=== PATIENT | female | born 1960 | race Caucasian/White ===

== ENCOUNTER 2018-04-14 17:15 | Observation (INO) | payer BC ==
[2018-04-14 17:25] VITALS: BMI 22.9
[2018-04-14] MEDS ORDERED: ASPIRIN 81 MG CHEWABLE TABLETS PO ONE (17:26)
--- NOTE | 2018-04-14 17:26 | PDOC ---
Rapid Medical Evaluation Time Seen by Provider: 04/14/18 17:22 Medical Evaluation: Allergies Allergy/AdvReac Type Severity Reaction Status Date / Time ciprofloxacin [From Cipro] Allergy Severe Vomiting Verified 04/14/18 17:22 04/14/18 17:22 The patient complaints of: midsternal tightness with burning intermittently since 3 am , SOB since 8 am, no travel, no sx, Took pepcid ac with no relief, father mi at 42, seen by principal software engineer years ago, hx uterine ca On brief exam: vss, robert, lcta The patient was ordered for: cardiac w/u, pe w/u The patient will proceed to the ED Discharge Disposition - Diagnosis Chest tightness - Discharge Dispostion Condition at time of disposition: Guarded - Referrals - Patient Instructions - Post Discharge Activity
--- NOTE | 2018-04-14 17:55 | PDOC ---
History of Present Illness - General Chief Complaint: Chest Pain Stated Complaint: CHEST PAIN Time Seen by Provider: 04/14/18 17:22 History Source: Patient Exam Limitations: No Limitations - History of Present Illness Initial Comments: 04/14/18 18:04 58 year old female with PMH uterine CA (5 years ago, in remission, total hysterectomy with oophorectomy) presents to ED for chest pain since 0200 today. She locates her pain substernally, described as pressure, constant, waxing and waning, currently 5/10, no radiation, no alleviating or aggravating factors. She states she took pepcid for it without relief of her symptoms. She admits to shortness of breath today since 0800. She admits to bilateral calf cramping off and on over the last few days. She denies fever, chills, nausea, vomiting, diarrhea, abdominal pain, palpitations, cough, hemoptysis. She denies traveling >5 hours, hormone use, surgery <4 weeks, active cancer <6 months, hx DVT/PE, calf swelling, casting of extremities, bed rest >3 days. She states her father of an SC at 42 years old, her paternal uncle had an SC at 43. Allergies - Ciprofloxacin PCP - Federica Groves Weeder Thinner - Daquan Ruiz Past History - Past Medical History Allergies/Adverse Reactions: Allergies Allergy/AdvReac Type Severity Reaction Status Date / Time ciprofloxacin [From Cipro] Allergy Severe Vomiting Verified 04/14/18 17:22 Home Medications: Ambulatory Orders NK [No Known Home Medication] 04/14/18 Cancer: Yes (uterine) COPD: No - Immunization History Immunization Up to Date: Yes - Suicide/Smoking/Psychosocial Hx Smoking History: Never smoked Review of Systems - Review of Systems Able to Perform ROS?: Yes Comments:: 04/14/18 18:08 General: denies fever, chills, night sweats, generalized weakness. HEENT: denies sore throat, rhinorrhea, ear pain. Heart: admits to chest pain. denies palpitations, syncope, lower extremity swelling, diaphoresis. Respiratory: admits to shortness of breath. denies cough, sputum production, hemoptysis. Abdomen: denies abdominal pain, nausea, vomiting, diarrhea, constipation, blood in stool. : denies dysuria, increased urinary frequency, hematuria, urinary incontinence , flank pain. Back: denies back pain. Musculoskeletal: admits to bilateral calf cramping. denies joint pain, joint swelling. Neurological: denies headache, dizziness, numbness, tingling, weakness. Skin: denies rash, laceration, abrasion. *Physical Exam - Vital Signs Last Vital Signs Temp Pulse Resp BP Pulse Ox 97.8 F 50 L 20 152/74 100 04/14/18 17:22 04/14/18 17:22 04/14/18 17:22 04/14/18 17:22 04/14/18 17:22 - Physical Exam Comments: 04/14/18 18:09 Constitutional: Well-nourished, Well-developed, appearing stated age. HEENT: head is normocephalic, atraumatic. EOMI. PERRLA. Neck: supple. Full ROM. Heart: regular rhythm. no murmurs, rubs or gallops. Lungs: clear to auscultation bilaterally. no crackles, rhonchi or wheezing. no stridor. Abdomen: soft, nontender. normal bowel sounds. no rebound, guarding, masses. Extremities: Peripheral pulses intact and equal. No lower extremity edema. no tenderness to palpation of calf bilaterally. Neurological: CN 2-12 grossly intact. Moves all four extremities. Psych: awake, alert, oriented x3. Follows commands. Answers questions appropriately. ED Treatment Course - LABORATORY CBC & Chemistry Diagram: 04/14/18 18:11 04/14/18 18:11 Medical Decision Making - Medical Decision Making 04/14/18 18:09 58 year old female c/o chest pain since 0200 today. Family history positive for father of SC at 42. Denies HTN, DM, HLD, nicotine use. Initial Vital Signs Temp Pulse Resp BP Pulse Ox 97.8 F 50 L 20 152/74 100 04/14/18 17:22 04/14/18 17:22 04/14/18 17:22 04/14/18 17:22 04/14/18 17:22 Afebrile. Bradycardic. No tachypnea. Hypertensive. No hypoxia on room air. Concern for ACS/arrythmia - c/o chest pain, positive family history - Pending EKG, cardiac enzymes, CMP Concern for symptomatic bradycardia, hx running, no prior vitals to compare - Pacing pads applied - Will reassess Low concern for PE - no lower extremity swelling, b/l calf cramping, no tachycardia, SOB but no hypoxia on room air. - Cannot PERC out due to age - WELLs = 0 - Pending D-dimer, CTA, B/L dopper US of LE Low concern for CHF/Pneumonia - Pending CXR, BNP, CBC EKG performed at 1714 - rate 47, regular rhythm, normal axis, normal intervals, CA = 186, QTc = 387, no acute ST changes. Morphine ordered for pain. Nitro ordered for pain. Pepcid ordered for possible GERD. ASA ordered for possible ACS. 04/14/18 19:20 D-dimer normal. - CTA canceled - Pending LE Doppler US Pt complains of nausea. - Zofran ordered 04/14/18 19:39 CMP Sodium 140 mmol/L (136-145) 04/14/18 18:11 Potassium 3.8 mmol/L (3.5-5.1) 04/14/18 18:11 Chloride 107 mmol/L (98-107) 04/14/18 18:11 Carbon Dioxide 23 mmol/L (21-32) 04/14/18 18:11 Anion Gap 11 MMOL/L (8-16) 04/14/18 18:11 BUN 10 mg/dL (7-18) 04/14/18 18:11 Creatinine 0.7 mg/dL (0.55-1.3) 04/14/18 18:11 Creat Clearance w eGFR > 60 (>60) 04/14/18 18:11 Random Glucose 78 mg/dL (74-106) 04/14/18 18:11 Calcium 10.1 mg/dL (8.5-10.1) 04/14/18 18:11 Magnesium 2.3 mg/dL (1.8-2.4) 04/14/18 18:11 Total Bilirubin 0.7 mg/dL (0.2-1) 04/14/18 18:11 AST 16 U/L (15-37) 04/14/18 18:11 ALT 21 U/L (13-61) 04/14/18 18:11 Alkaline Phosphatase 82 U/L (45-117) 04/14/18 18:11 Creatine Kinase 162 IU/L (26-192) 04/14/18 18: Troponin I < 0.02 ng/ml (0.00-0.05) 04/14/18 18: B-Natriuretic Peptide 64.3 pg/ml (5-125) 04/14/18 18: Total Protein 8.0 g/dl (6.4-8.2) 04/14/18 18: Albumin 4.2 g/dl (3.4-5.0) 04/14/18 18: TSH 3.29 uIU/ml (0.358-3.74) 04/14/18 18: No electrolyte abnormalities. No acute kidney injury. No hyperglycemia. Normal initial troponin. Will repeat. - HEART score = 1 (positive family history) Normal BNP. Normal TSH. Normal phosphorous, 2.3. Urine Test Results Urine Color Straw 04/14/18 18: Urine Appearance Clear 04/14/18 18: Urine pH 8.0 (5.0-8.0) 04/14/18 18: Ur Specific [place] 1.003 (1.010-1.035) L 04/14/18 18: Urine Protein Negative (NEGATIVE) 04/14/18 18: Urine Glucose (UA) Negative (NEGATIVE) 04/14/18 18: Urine Ketones Negative (NEGATIVE) 04/14/18 18: Urine Blood Negative (NEGATIVE) 04/14/18 18: Urine Nitrite Negative (NEGATIVE) 04/14/18 18: Urine Bilirubin Negative (<2.0 mg/dL) 04/14/18 18: Ur Leukocyte Esterase 1+ (NEGATIVE) H 04/14/18 18: Ur Epithelial Cells Few /HPF (FEW) 04/14/18 18: Leukocyte esterase positive, but WBC <5, (+) presence of epithelial cells, asymptomatic. - UTI unlikely No protein in urine. INR, PTT INR 1.00 (0.83-1.09) 04/14/18 18: PT and PTT normal. No coagulopathy. 04/14/18 19:47 Cardiology, Dr. Kemp, paged. 04/14/18 19:[address] Kemp's office, Dr. Abdi is dimension warehouse supervisor. Dr. Abdi paged. 04/14/18 20:18 CXR - no infiltrate. no cardiomegaly. no pneumothorax. sharp costophrenic angles. 04/14/18 20:24 I discussed the case with Dr. Alejandre, resident dimension warehouse supervisor, who states the patient will be admitted to Dr. Brenner's service. - Pending admission 04/14/18 20:42 Dr. Zee spoke with Dr. Abdi about the case, he stated he accepted the consultation, he stated he will see the patient tomorrow. *DC/Admit/Observation/Transfer Diagnosis at time of Disposition: Chest tightness - Discharge Dispostion Condition at time of disposition: Guarded Decision to Admit order: Yes - Referrals - Patient Instructions - Post Discharge Activity
[2018-04-14] MEDS ORDERED: ASPIRIN 81 MG CHEWABLE TABLETS ONE (18:06)
[2018-04-14] MEDS ORDERED: SODIUM CHLORIDE 0.9% 1000 ML INFUS.BAG IV ONE (18:44)
[2018-04-14] MEDS ORDERED: NITROGLYCERIN SUBLINGUAL 1/150 0.4 MG TAB SL ONE (18:44)
[2018-04-14] MEDS ORDERED: FAMOTIDINE 20 MG/50 ML IVPB 20 MG/50 ML MG IVPB ONE ×2 (18:44→19:06)
[2018-04-14] MEDS ORDERED: morphine CARPU-JECT 2 MG/1 ML DISP.SYRIN IVPUSH ONE (18:44)
[2018-04-14] MEDS ORDERED: NITROGLYCERIN SUBLINGUAL 1/150 0.4 MG TAB ONE (18:52)
[2018-04-14] MEDS ORDERED: MORPHINE SULFATE 2 MG/ML VIAL ONE (18:52)
[2018-04-14 18:54] LABS: BASO % 0.6 % (0-2.0); EOS % 1.4 % (0-4.5); HEMATOCRIT 41.3 % (32.4-45.2); HEMOGLOBIN 13.6 GM/dL (10.7-15.3); MCH 29.5 pg (25.7-33.7); MCHC 32.8 g/dl (32.0-36.0); MEAN PLT VOLUME 8.6 fl (7.5-11.1); MONO % 9.6 % (3.8-10.2); NEUT % 48.4 % (42.8-82.8); PLATELET COUNT 263 K/MM3 (134-434); RDW 13.1 % (11.6-15.6); URINE APPEARANCE CLEAR; URINE BILIRUBIN NEGATIVE (<2.0 mg/dL); URINE COLOR STRAW; URINE GLUCOSE (UA) NEGATIVE (NEGATIVE); URINE KETONE NEGATIVE (NEGATIVE); URINE LEUK ESTERASE 1+ (NEGATIVE); URINE NITRITE NEGATIVE (NEGATIVE); URINE PROTEIN NEGATIVE (NEGATIVE); URINE UROBILINOGEN NEGATIVE mg/dL (0.2-1.0); WHITE BLOOD COUNT 6.4 K/mm3 (4.0-10.0)
[2018-04-14] MEDS ORDERED: ONDANSETRON 4 MG/2 ML VIAL ONE (19:02)
[2018-04-14] MEDS ORDERED: ONDANSETRON 4 MG/2 ML VIAL IVPUSH ONE (19:02)
[2018-04-14 19:03] LABS: EPI CELLS FEW /HPF (FEW); PROTHROMBIN TIME (PATIENT) 11.8 SEC (9.7-13.0)
--- NOTE | 2018-04-14 19:14 | PDOC ---
Attending Attestation - HPI HPI: 04/14/18 19:15 The patient is a 58 year old female with a significant past medical history of uterine CA (5 years ago, in remission, s/p total hysterectomy with oophorectomy ) who presents to the ED with complaints of chest pain since earlier today. Patient reports an onset of waxing and waning midsternal chest pain described as a pressure like sensation around 4am this morning. She also reports slight shortness of breath associated with present symptoms. Denies fever or chills. Denies nausea, vomiting, or diarrhea. Denies any others symptoms. Documentation prepared by Sagar Adam, acting as medical technologist prn for Phylicia Zee DO - Physicial Exam PE: 04/14/18 19:16 Constitutional: Awake, alert, oriented. No acute distress. Head: Normocephalic. Atraumatic Eyes: PERRL. EOMI. Conjunctivae are not pale. ENT: Mucous membranes are moist and intact. Posterior pharynx without exudates or erythema. Uvula midline. Neck: Supple. Full ROM. No lymphadenopathy. Cardiovascular: + Bradycardic. Regular rhythm. S1, S2 regular. Distal pulses are 2+ and symmetric. Pulmonary/Chest: No evidence of respiratory distress. Clear to auscultation bilaterally No wheezing, rales or rhonchi. Abdominal: Soft and non-distended. There is no tenderness. No rebound, guarding or rigidity. No organomegaly. No palpable masses. Good bowel sounds. Back: No CVA tenderness. Musculoskeletal: No edema. No cyanosis. No clubbing. Full range of motion in all extremities. Nocalf tenderness. Radial/pedal pulses are intact and 2+ bilaterally Skin: Skin is warm and dry. No petechiae. No purpura. Neurological: Alert and oriented to person, place, and time. Cranial nerves II -XII are grossly intact. Normal speech. Strength is grossly symmetric. No sensory deficits. Psychiatric: Good eye contact. Normal interaction, affect and behavior. <Sagar Adam - Last Filed: 04/14/18 19:15> - Resident Resident Name: Mady Cerda - ED Attending Attestation I have performed the following: I have examined & evaluated the patient, The case was reviewed & discussed with the resident, I agree w/resident's findings & plan, Exceptions are as noted - Medical Decision Making 04/14/18 19:14 I, Dr. Phylicia Zee, DO, attest that this document has been prepared under my direction and personally reviewed by me in its entirety. I further attest, that it accurately reflects all work, treatment, procedures and medical decision -making performed by me. 04/14/18 19:25 a/p: 58yo female with chest pain since 4am -midsternal cp, assoc sob -has had calf cramping and has had sob today -hx of cancer in the past -no pleuritic component to the pain -no radiation of the pain, no rashes, no anterior chest wall ttp -pt is active at baseline, pt is robert on her EKG -will send labs, trop, ekg, cxr, duplex u/s LE, dimer -will monitor on tele -will place zol pads to the chest -will place in obs pending labs, will need cardiac eval 04/14/18 19:44 trop negative dimer negative pt to ultrasound at this time updated on lab results 04/14/18 20:[address] Abdi who will see the patient in consult 04/14/18 20:35 resident discussed the case with [facility] who accepts the patient to service <Phylicia Zee - Last Filed: 04/14/18 20:35> Heart Score/ECG Review - ECG Intrepretation Comment:: 04/14/18 19:28 sinus robert at 47, nl axis, nl interval, no acute st/t wave findings <Phylicia Zee - Last Filed: 04/14/18 20:35>
[2018-04-14 19:25] LABS: ALBUMIN 4.2 g/dl (3.4-5.0); ALK PHOS 82 U/L (45-117); ANION GAP 11 MMOL/L (8-16); BILIRUBIN,TOTAL 0.7 mg/dL (0.2-1); BLOOD UREA NITROGEN 10 mg/dL (7-18); CALCIUM 10.1 mg/dL (8.5-10.1); CHLORIDE 107 mmol/L (98-107); CO2 23 mmol/L (21-32); CREATININE 0.7 mg/dL (0.55-1.3); GLUCOSE,RANDOM 78 mg/dL (74-106); MAGNESIUM 2.3 mg/dL (1.8-2.4); N-TERMINAL BNP 64.3 pg/ml (5-125); POTASSIUM 3.8 mmol/L (3.5-5.1); SGOT/AST 16 U/L (15-37); SGPT/ALT 21 U/L (13-61); SODIUM 140 mmol/L (136-145)
[2018-04-14] MEDS ORDERED: MAG HYDROX/AL HYDROX/SIMETH 30 ML UNIT-DOSE CUP PO ONE (19:42)
[2018-04-14] MEDS ORDERED: MAG HYDROX/AL HYDROX/SIMETH 30 ML UNIT-DOSE CUP ONE (19:46)
--- NOTE | 2018-04-14 20:35 | PN ---
Teaching Attending Note Name of Resident: Brenda Swan ATTENDING PHYSICIAN STATEMENT I saw and evaluated the patient. I reviewed the resident's note and discussed the case with the resident. I agree with the resident's findings and plan as documented. SUBJECTIVE: Patient is a 58 year old woman with PMH of uterine CA (5 years ago, in remission , total hysterectomy with oophorectomy) who presents to ER for chest pain since 0200 today. She locates her pain substernally, described as pressure, constant, waxing and waning, currently 5/10, no radiation, no alleviating or aggravating factors. She states she took pepcid for it without relief of her symptoms. She admits to shortness of breath today since 0800. She admits to calf cramping off and on over the last few days. She denies fever, chills, nausea, vomiting, diarrhea, abdominal pain, palpitations, cough, hemoptysis. She denies traveling >5 hours, hormone use, surgery <4 weeks, active cancer <6 months, hx DVT/PE, calf swelling/pain, casting of extremities, bed rest >3 days. She states her father of an [place] at 42 years old, her paternal uncle had an [place] at 43. OBJECTIVE: Alert Vital Signs Period Temp Pulse Resp BP Sys/De Jesus Pulse Ox Last 24 Hr 97.8 F 48-52 17-20 139-152/61-74 100-100 HEENT: No Jaundice, eye redness or discharge, PERRLA, EOMI. Normocephalic, atraumatic. External ears are normal and hearing is grossly intact. No nasal discharge. Neck: Supple, nontender. No palpable adenopathy or thyromegaly. No JVD Chest: Good effort. Clear to auscultation and percussion. Heart: Bradycardia. No S3, rub or murmur Abdomen: Not distended, soft, nontender and no HSM. No rebound or guarding. Normoactive bowel sounds. Ext: Peripheral pulses intact. No leg edema. Skin: Warm and dry. No petechiae, rash or ecchymosis. Neuro: Alert. Oriented x3. CN 2-12 grossly intact. Sensation grossly intact in all four extremities and DTR are symmetric. Home Medications Medication Instructions Recorded NK [No Known Home Medication] 10/11/18 Abnormal Lab Results 04/14/18 18:11 Ur Specific [place] 1.003 L Ur Leukocyte Esterase 1+ H ASSESSMENT AND PLAN: 1. Chest pain and Bradycardia - Has significant family history of premature CAD. No ST-T wave changes on EKG and troponin is negative. Will admit to telemetry to rule out ACS. Get ECHO, fasting lipids and consult cardiology. Bradycardia may be related to the fact that she is an avid runner. 2. DVT prophylaxis - Lovenox 40 mg SQ q 24 hours. 3. Advance directives - Full code
--- NOTE | 2018-04-14 22:15 | HP ---
CHIEF COMPLAINT: chest pain and sob PCP: HISTORY OF PRESENT ILLNESS: 58F w/ pmhx of uterine cx s/p HATTIE who presents with chest pain and sob since this AM. Pt states that she started having non-radiating mid-sternal chest pain that she rated 6/10 at the time. She also admits to associated sob during this episode. Pt reports that she has had a chest pain in the past where she had taken Pepcid with complete resolution of the pain. During this episode however, she did take a Pepcid with no relief. She also states that the chest pain today was much different than the prior episode. Upon presenting to the hospital, after she was given nitro, she reported complete relief of the pain after a few min, but with return on a pain scale of 4/10. ER course was notable for: (1) EKG showed sinus bradycardia, trops neg, d-dimer neg, CXR neg, BNP nl (2) Morphine 2mg, Aspirin 162, Nitro, Zofran, Pepcid given (3) Recent Travel: Denies PAST MEDICAL HISTORY: Uterine cx s/p HATTIE w/ b/l salpingo-oophorectomy, in complete remission PAST SURGICAL HISTORY: HATTIE w/ b/l salpingo-oophorectomy Social History: Smoking: Never Alcohol: socially, wine Drugs: Never Family History: Father, [place], at 45 Uncle, [place], at 42 Mother, [place], at 88 Allergies ciprofloxacin [From Cipro] Allergy (Severe, Verified 04/14/18 17:22) Vomiting HOME MEDICATIONS: Home Medications Medication Instructions Recorded NK [No Known Home Medication] 04/14/18 REVIEW OF SYSTEMS CONSTITUTIONAL: Absent: fever, chills, diaphoresis, generalized weakness, malaise,weight change HEENT: Absent: rhinorrhea, nasal congestion, visual changes CARDIOVASCULAR: +chest pressure Absent: chest pain, syncope, palpitations, irregular heart rate, lightheadedness , peripheral edema RESPIRATORY: +shortness of breath Absent: cough, dyspnea with exertion, orthopnea, wheezing GASTROINTESTINAL: Absent: abdominal pain, abdominal distension, nausea, vomiting, diarrhea, constipation GENITOURINARY: Absent: dysuria, frequency, urgency, hesitancy, hematuria MUSCULOSKELETAL: Absent: myalgia, arthralgia, joint swelling, back pain, neck pain ENDOCRINE: Absent: unexplained weight gain, unexplained weight loss, heat intolerance, cold intolerance NEUROLOGIC: Absent: headache, dizziness, unsteady gait, bladder or bowel incontinence PHYSICAL EXAMINATION Vital Signs - 24 hr 04/14/18 04/14/18 04/14/18 17:22 19:10 19:20 Temperature 97.8 F Pulse Rate 50 L 48 L Pulse Rate [ 52 L 48 L Right] Respiratory 20 17 18 Rate Blood Pressure 152/74 Blood Pressure 146/74 139/61 [Right Arm] O2 Sat by Pulse 100 100 100 Oximetry (%) 04/14/18 21:06 Temperature 97.4 F L Pulse Rate Pulse Rate [ 48 L Right] Respiratory 18 Rate Blood Pressure Blood Pressure 130/41 L [Right Arm] O2 Sat by Pulse 100 Oximetry (%) GENERAL: AAOx3. NAD. Resting comfortably. HEENT: AT/NC. EOMI. VIBHA. Moist mucus membranes. NECK: Supple, no LAD/JVD. LUNGS: CTA B/L. No w/r/r noted. Symmetric chest rise. No accessory muscle use. HEART: Bradycardic. Normal S1, S2. No murmurs noted. Chest pain non-reproducible ABDOMEN: Soft, ND/NT +BS in all 4 Q's. No masses or bruits noted. MUSCULOSKELETAL: No pedal edema. 5/5 muscle strength in b/l u/l extremities. NEUROLOGICAL: Normal speech. CN II-XII intact. PSYCHIATRIC: Cooperative. Good eye contact. Appropriate mood and affect. SKIN: Warm, dry, normal turgor, normal capillary refill. Laboratory Results - last 24 hr CBC, BMP 04/14/18 18:11 04/14/18 18:11 Abnormal Lab Results 04/14/18 18:11 Ur Specific [place] 1.003 L Ur Leukocyte Esterase 1+ H ASSESSMENT/PLAN: 58F w/ pmhx of uterine cx s/p HATTIE currently in complete remission admitted for acute onset chest pain and shortness of breath. #chest pain r/o ACS; Unlikely ACS as trops neg, EKG sinus robert with no STT depression/elevations, or T wave changes. Pt states she was an active runner, and now does spin class 4 days a week. Bradycardia likely due to athletic conditioning. -repeat trops neg, f/u EKG -Echo in AM -Cardio consult ordered -Fasting lipid profile ordered #DVT Ppx -early ambulation -Lovenox 40 mg SQ QD #FEN -no IVf needed -recheck lytes in AM -Regular diet dispo -admit to tele obs Visit type - Emergency Visit Emergency Visit: Yes ED Registration Date: 04/14/18 Care time: The patient presented to the Emergency Department on the above date and was hospitalized for further evaluation of their emergent condition. - New Patient This patient is new to me today: Yes Date on this admission: 04/15/18 - Critical Care Critical Care patient: No
[2018-04-15 06:50] LABS: HEMATOCRIT 33.7 % (32.4-45.2); HEMOGLOBIN 11.3 GM/dL (10.7-15.3); MCHC 33.7 g/dl (32.0-36.0); MEAN CELL VOLUME 89.1 fl (80-96); MEAN PLT VOLUME 8.6 fl (7.5-11.1); PLATELET COUNT 217 K/MM3 (134-434); RBC 3.78 M/mm3 (3.60-5.2); WHITE BLOOD COUNT 5.4 K/mm3 (4.0-10.0)
[2018-04-15 07:09] LABS: ANION GAP 9 MMOL/L (8-16); BLOOD UREA NITROGEN 11 mg/dL (7-18); CALCIUM 8.6 mg/dL (8.5-10.1); CHLORIDE 114 mmol/L (98-107); CHOLESTEROL 158 mg/dL (50-200); CO2 22 mmol/L (21-32); CREATININE 0.7 mg/dL (0.55-1.3); GLUCOSE,RANDOM 80 mg/dL (74-106); HDL CHOLESTEROL 59 mg/dL (40-60); SODIUM 145 mmol/L (136-145); TRIGLYCERIDES 61 mg/dL (0-150)
--- NOTE | 2018-04-15 09:24 | PN ---
Progress Note, Physician Chief Complaint: No c/o chest pain or SOB, denies any Palpitation or Dizziness History of Present Illness: 58 yrs old F H/O Uterine cancer in remission s/p HATTIE with B/L Oophrectomy , excellent exercise tolerance FHO premature CAD preent with pressure like chest pain incedentally found to have sinus bradycardia that is persistent on Administrative Hearing Officer, all interval and morphology is normal, normal serial CE schedulefor CAd w/u. - Current Medication List Current Medications: Active Medications Enoxaparin Sodium (Lovenox -) 40 mg SQ DAILY [facility] Active Medications Generic Name Dose Route Start Last Admin Trade Name Freq PRN Reason Stop Dose Admin Al Hydroxide/Mg Hydroxide 30 ml 04/15/18 09:42 Mylanta Oral Suspension - PO Q6H PRN DYSPEPSIA Enoxaparin Sodium 40 mg 04/15/18 10:00 Lovenox - SQ DAILY NELLA Pantoprazole Sodium 40 mg 04/15/18 10:00 Protonix - PO DAILY NELLA - Objective Vital Signs: Vital Signs Temperature 98 F 04/15/18 06:00 Pulse Rate 56 L 04/15/18 06:00 Respiratory Rate 18 04/15/18 06:00 Blood Pressure 102/67 04/15/18 06:00 O2 Sat by Pulse Oximetry (%) 99 04/15/18 06:05 Middle aged F comfortable not in distress HEENT: Mm moist, no anemia NECK: No JVD No Bruit CHEST: CTA B/L no m/g/r ABD: No distention, non tender Bs + EXT: No Edema feet, no calf pain Pulses + FANCY PACKER: AOX3 non focal Labs: CBCD WBC 5.4 K/mm3 (4.0-10.0) 04/15/18 05:30 RBC 3.78 M/mm3 (3.60-5.2) 04/15/18 05:30 Hgb 11.3 GM/dL (10.7-15.3) 04/15/18 05:30 Hct 33.7 % (32.4-45.2) D 04/15/18 05:30 MCV 89.1 fl (80-96) 04/15/18 05:30 MCHC 33.7 g/dl (32.0-36.0) 04/15/18 05:30 RDW 13.0 % (11.6-15.6) 04/15/18 05:30 Plt Count 217 K/MM3 (134-434) 04/15/18 05:30 MPV 8.6 fl (7.5-11.1) 04/15/18 05:30 CMP Sodium 145 mmol/L (136-145) 04/15/18 05:30 Potassium 4.0 mmol/L (3.5-5.1) 04/15/18 05:30 Chloride 114 mmol/L (98-107) H 04/15/18 05:30 Carbon Dioxide 22 mmol/L (21-32) 04/15/18 05:30 Anion Gap 9 MMOL/L (8-16) 04/15/18 05:30 BUN 11 mg/dL (7-18) 04/15/18 05:30 Creatinine 0.7 mg/dL (0.55-1.3) 04/15/18 05:30 Creat Clearance w eGFR > 60 (>60) 04/15/18 05:30 Calcium 8.6 mg/dL (8.5-10.1) 04/15/18 05:30 Total Bilirubin 0.7 mg/dL (0.2-1) 04/14/18 18:11 AST 16 U/L (15-37) 04/14/18 18:11 ALT 21 U/L (13-61) 04/14/18 18:11 Alkaline Phosphatase 82 U/L (45-117) 04/14/18 18:11 Total Protein 8.0 g/dl (6.4-8.2) 04/14/18 18:11 Albumin 4.2 g/dl (3.4-5.0) 04/14/18 18:11 Trop I X2 are normal Lipid: LDL 95 TSH: Normal - ....Imaging Chest X-ray: Report Reviewed (Normal) Ultrasound: Report Reviewed (LE Doppler: -ve for DVT) Problem List - Problems (1) Chest tightness Assessment/Plan: Atypical presenattion only CAd risk is premature CAd multiple family members, non smoker, not on HRT, LDL at target excellent ET, F/U ECHO Cardiology input Cardiac CT angio/Stress test as per cardiology input fprrisk stratification, possibality of GERD /esophageal spasm but duration is prolonged. Code(s): R07.89 - OTHER CHEST PAIN (2) Bradycardia Assessment/Plan: persistent most likely due to cardoio Pulmonary condoition , patient was an avid runner in the past. Code(s): R00.1 - BRADYCARDIA, UNSPECIFIED
--- NOTE | 2018-04-15 09:28 | EKG ---
Test Reason : Blood Pressure : / mmHG Vent. Rate : 044 BPM Atrial Rate : 044 BPM P-R Int : 228 ms QRS Dur : 078 ms QT Int : 470 ms P-R-T Axes : 062 018 060 degrees QTc Int : 401 ms MARKED SINUS BRADYCARDIA WITH 1ST DEGREE A-V BLOCK CANNOT RULE OUT ANTERIOR INFARCT , AGE UNDETERMINED ABNORMAL ECG WHEN COMPARED WITH ECG OF 14-APR-2018 17:14, IN INTERVAL HAS INCREASED Confirmed by YASMIN MCLAIN MD ([id number]) on 04/15/2018 9:28:10 AM Referred By: TUAN LAN DRBAN[facility] Confirmed By:YASMIN MCLAIN MD
[2018-04-15] MEDS ORDERED: MAG HYDROX/AL HYDROX/SIMETH 30 ML UNIT-DOSE CUP PO PRN (09:42)
--- NOTE | 2018-04-15 09:58 | EKG ---
Test Reason : Blood Pressure : / mmHG Vent. Rate : 047 BPM Atrial Rate : 047 BPM P-R Int : 186 ms QRS Dur : 078 ms QT Int : 438 ms P-R-T Axes : 018 015 059 degrees QTc Int : 387 ms SINUS BRADYCARDIA NONSPECIFIC ST ABNORMALITY NO PREVIOUS ECGS AVAILABLE Confirmed by YASMIN MCLAIN MD ([id number]) on 04/15/2018 9:58:21 AM Referred By: Confirmed By:YASMIN MCLAIN MD
[2018-04-15] MEDS ORDERED: ENOXAPARIN NA (PORCINE) 40 MG/0.4 ML DISP.SYRIN SQ SCH (10:00)
[2018-04-15] MEDS ORDERED: PANTOPRAZOLE 40 MG TABLET (FP) PO SCH (10:00)
[2018-04-15 10:10] VITALS: BP 107/60; PULSE 44; TEMP 98.2
--- NOTE | 2018-04-15 11:28 | CON.CARD ---
Cardiology Consult (text) - Consultation Consultation Note: cc: cp hpi: 58 f hx gerd, uterine ca here with cp. Yesterday AM awoke with central chest tightness. She took pepcid and went to work. CP persisted so came to ER. Overnight cp resolved. Feeling well now. No cp now. Did not have sob palps dizzy loc pnd orhtopnea le edema. Very active with exercise and does spin class and running often, including earlier this week, never has anginal sxs. pmh: per hpi psh: HATTIE social: no tob fam: dad and uncle mi 40s ros: per hpi; no nvd fever cough reece vision changes gib hematuria dysuria meds: Home Medications Medication Instructions Recorded NK [No Known Home Medication] 04/14/18 pe: Vital Signs Period Temp Pulse Resp BP Sys/De Jesus Pulse Ox Last 24 Hr 97.4 F-98.2 F 44-59 17-20 94-152/41-74 98-100 nad no jvd rrr s1s2 no mrg cta bl nl eff aaox3 no le e/c/c abd nt nd pos bs no jaundice diaphoresis pos dp pt no carotid bruits Laboratory Last Values WBC 5.4 K/mm3 (4.0-10.0) 04/15/18 05:30 RBC 3.78 M/mm3 (3.60-5.2) 04/15/18 05:30 Hgb 11.3 GM/dL (10.7-15.3) 04/15/18 05:30 Hct 33.7 % (32.4-45.2) D 04/15/18 05:30 MCV 89.1 fl (80-96) 04/15/18 05:30 MCH 30.0 pg (25.7-33.7) 04/15/18 05:30 MCHC 33.7 g/dl (32.0-36.0) 04/15/18 05:30 RDW 13.0 % (11.6-15.6) 04/15/18 05:30 Plt Count 217 K/MM3 (134-434) 04/15/18 05:30 MPV 8.6 fl (7.5-11.1) 04/15/18 05:30 Absolute Neuts (auto) 3.1 K/mm3 (1.5-8.0) 04/14/18 18:11 Neutrophils % 48.4 % (42.8-82.8) 04/14/18 18:11 Lymphocytes % 40.0 % (8-40) 04/14/18 18:11 Monocytes % 9.6 % (3.8-10.2) 04/14/18 18:11 Eosinophils % 1.4 % (0-4.5) 04/14/18 18:11 Basophils % 0.6 % (0-2.0) 04/14/18 18:11 Nucleated RBC % 0 % (0-0) 04/14/18 18:11 PT with INR 11.80 SEC (9.7-13.0) 04/14/18 18:11 INR 1.00 (0.83-1.09) 04/14/18 18:11 D-Dimer 330 ng/ml (0-500) 04/14/18 18:11 Sodium 145 mmol/L (136-145) 04/15/18 05:30 Potassium 4.0 mmol/L (3.5-5.1) 04/15/18 05:30 Chloride 114 mmol/L (98-107) H 04/15/18 05:30 Carbon Dioxide 22 mmol/L (21-32) 04/15/18 05:30 Anion Gap 9 MMOL/L (8-16) 04/15/18 05:30 BUN 11 mg/dL (7-18) 04/15/18 05:30 Creatinine 0.7 mg/dL (0.55-1.3) 04/15/18 05:30 Creat Clearance w eGFR > 60 (>60) 04/15/18 05:30 Random Glucose 80 mg/dL (74-106) 04/15/18 05:30 Calcium 8.6 mg/dL (8.5-10.1) 04/15/18 05:30 Magnesium 2.3 mg/dL (1.8-2.4) 04/14/18 18:11 Total Bilirubin 0.7 mg/dL (0.2-1) 04/14/18 18:11 AST 16 U/L (15-37) 04/14/18 18:11 ALT 21 U/L (13-61) 04/14/18 18:11 Alkaline Phosphatase 82 U/L (45-117) 04/14/18 18:11 Creatine Kinase 162 IU/L (26-192) 04/14/18 18:11 Creatine Kinase Index 0.6 % (0.0-5.0) 04/14/18 18:11 CK-MB (CK-2) < 1.0 ng/mL (0.5-3.6) 04/14/18 18:11 Troponin I < 0.02 ng/ml (0.00-0.05) 04/15/18 01:30 B-Natriuretic Peptide 64.3 pg/ml (5-125) 04/14/18 18:11 Total Protein 8.0 g/dl (6.4-8.2) 04/14/18 18:11 Albumin 4.2 g/dl (3.4-5.0) 04/14/18 18:11 Triglycerides 61 mg/dL (0-150) 04/15/18 05:30 Cholesterol 158 mg/dL (50-200) 04/15/18 05:30 Total LDL Cholesterol 95 mg/dL (5-100) 04/15/18 05:30 HDL Cholesterol 59 mg/dL (40-60) 04/15/18 05:30 TSH 3.29 uIU/ml (0.358-3.74) 04/14/18 18:11 Urine Color Straw 04/14/18 18: Urine Appearance Clear 04/14/18 18: Urine pH 8.0 (5.0-8.0) 04/14/18 18:11 Ur Specific [place] 1.003 (1.010-1.035) L 04/14/18 18: Urine Protein Negative (NEGATIVE) 04/14/18 18: Urine Glucose (UA) Negative (NEGATIVE) 04/14/18 18: Urine Ketones Negative (NEGATIVE) 04/14/18 18: Urine Blood Negative (NEGATIVE) 04/14/18 18: Urine Nitrite Negative (NEGATIVE) 04/14/18 18: Urine Bilirubin Negative (<2.0 mg/dL) 04/14/18 18: Urine Urobilinogen Negative mg/dL (0.2-1.0) 04/14/18 18:11 Ur Leukocyte Esterase 1+ (NEGATIVE) H 04/14/18 18:11 Urine WBC (Auto) 2 /hpf (3-5) 10/11/18 18:11 Urine RBC (Auto) 1 /hpf (0-3) 04/14/18 18:11 Ur Epithelial Cells Few /HPF (FEW) 04/14/18 18:11 cxr: clear lungs ecgs 04/14, 04/15/18: sb 40s, nl intervals, no ischemic changes tele: sb 40s a/p: 58 f hx gerd, uterine ca here with cp. cp: -resolved now -ecg and ce's unremarkable, no signs acs - d-dimer nl -echo pending -Pt should have ETT for risk stratification. She has no cp now and would like to do this as outpt. -if echo benign ok for dc from cardiac pov sinus bradycardia: -no pathologic bradycardia on tele -tsh wnl -likely due to extensive cardio exercising she does gerd: -possible cause of her sxs, GI eval
[2018-04-15] MEDS ORDERED: ACETAMINOPHEN 325 MG TABLET (FP) PO PRN (11:50)
--- NOTE | 2018-04-15 12:18 | ECHO ---
Name: DOREEN COX Exam:Adult Echocardiogram Study Date: 04/15/2018 09:28 AM Age: 58 yrs Reason For Study: Chest pain Height: 65 in Weight: 138 lb BSA: 1.7 m2 MMode/2D Measurements & Calculations IVSd: 0.69 cm Ao root diam: 2.5 cm LVIDd: 4.4 cm LA dimension: 2.5 cm LVIDs: 3.1 cm LVPWd: 0.81 cm EDV(Teich): 89.6 ml ESV(Teich): 38.9 ml Doppler Measurements & Calculations MV E max deshawn: 91.8 cm/sec Med Peak E' Deshawn: 9.7 cm/sec MV A max deshawn: 14.8 cm/sec Med E/e': 9.4 MV E/A: 6.2 Lat Peak E' Deshawn: 13.8 cm/sec MV dec time: 0.23 sec Lat E/e': 6.6 Left Ventricle Ejection Fraction = 55-60%. Left ventricular systolic function is normal. Right Ventricle The right ventricle is grossly normal size. The right ventricular systolic function is grossly normal . Atria Normal left and right atrial size and function. Mitral Valve The mitral valve is normal in structure and function. There is mild mitral regurgitation. Tricuspid Valve There is trace tricuspid regurgitation. Aortic Valve The aortic valve opens well. No hemodynamically significant valvular aortic stenosis. No aortic regur gitation is present. Pulmonic Valve The pulmonic valve is not well seen, but is grossly normal. Great Vessels The aortic root is normal size. Pericardium/Pleura Trivial pericardial effusion not hemodynamically significant. Interpretation Summary Trivial pericardial effusion not hemodynamically significant Ejection Fraction = 55-60%. Left ventricular systolic function is normal. There is trace tricuspid regurgitation. There is mild mitral regurgitation. MD Ron Covarrubias 04/15/2018 12:18 PM
--- NOTE | 2018-04-15 12:50 | DS ---
Physical Examination Vital Signs: Vital Signs Temperature 98.2 F 04/15/18 09:00 Pulse Rate 44 L 04/15/18 09:00 Respiratory Rate 17 04/15/18 09:00 Blood Pressure 107/60 04/15/18 09:00 O2 Sat by Pulse Oximetry (%) 99 04/15/18 06:05 Middle aged F comfortable not in distress, denies any complaints HEENT: Mm moist, no anemia NECK: No JVD No Bruit CHEST: CTA B/L no m/g/r ABD: No distention, non tender Bs + EXT: No Edema feet, no calf pain Pulses + UROGYNECOLOGY PHYSICIAN: AOX3 non focal Labs: CBC, BMP 04/15/18 05:30 04/15/18 05:30 CBC,CMP WBC 5.4 K/mm3 (4.0-10.0) 04/15/18 05:30 RBC 3.78 M/mm3 (3.60-5.2) 04/15/18 05:30 Hgb 11.3 GM/dL (10.7-15.3) 04/15/18 05:30 Hct 33.7 % (32.4-45.2) D 04/15/18 05:30 MCV 89.1 fl (80-96) 04/15/18 05:30 MCH 30.0 pg (25.7-33.7) 04/15/18 05:30 MCHC 33.7 g/dl (32.0-36.0) 04/15/18 05:30 RDW 13.0 % (11.6-15.6) 04/15/18 05:30 Plt Count 217 K/MM3 (134-434) 04/15/18 05:30 MPV 8.6 fl (7.5-11.1) 04/15/18 05:30 Absolute Neuts (auto) 3.1 K/mm3 (1.5-8.0) 04/14/18 18:11 Neutrophils % 48.4 % (42.8-82.8) 04/14/18 18:11 Lymphocytes % 40.0 % (8-40) 04/14/18 18:11 Monocytes % 9.6 % (3.8-10.2) 04/14/18 18:11 Eosinophils % 1.4 % (0-4.5) 04/14/18 18:11 Basophils % 0.6 % (0-2.0) 04/14/18 18:11 Nucleated RBC % 0 % (0-0) 04/14/18 18:11 Sodium 145 mmol/L (136-145) 04/15/18 05:30 Potassium 4.0 mmol/L (3.5-5.1) 04/15/18 05:30 Chloride 114 mmol/L (98-107) H 04/15/18 05:30 Carbon Dioxide 22 mmol/L (21-32) 04/15/18 05:30 Anion Gap 9 MMOL/L (8-16) 04/15/18 05:30 BUN 11 mg/dL (7-18) 04/15/18 05:30 Creatinine 0.7 mg/dL (0.55-1.3) 04/15/18 05:30 Creat Clearance w eGFR > 60 (>60) 04/15/18 05:30 Random Glucose 80 mg/dL (74-106) 04/15/18 05:30 Calcium 8.6 mg/dL (8.5-10.1) 04/15/18 05:30 Magnesium 2.3 mg/dL (1.8-2.4) 04/14/18 18:11 Total Bilirubin 0.7 mg/dL (0.2-1) 04/14/18 18:11 AST 16 U/L (15-37) 04/14/18 18:11 ALT 21 U/L (13-61) 04/14/18 18:11 Alkaline Phosphatase 82 U/L (45-117) 04/14/18 18:11 Creatine Kinase 95 IU/L (26-192) 04/15/18 05:30 Creatine Kinase Index 0.6 % (0.0-5.0) 04/14/18 18:11 CK-MB (CK-2) < 1.0 ng/mL (0.5-3.6) 04/14/18 18:11 Troponin I < 0.02 ng/ml (0.00-0.05) 04/15/18 05:30 C-Reactive Protein < 0.3 MG/DL (0.00-0.3) 04/15/18 05:30 B-Natriuretic Peptide 64.3 pg/ml (5-125) 04/14/18 18:11 Total Protein 8.0 g/dl (6.4-8.2) 04/14/18 18:11 Albumin 4.2 g/dl (3.4-5.0) 04/14/18 18:11 Triglycerides 61 mg/dL (0-150) 04/15/18 05:30 Cholesterol 158 mg/dL (50-200) 04/15/18 05:30 Total LDL Cholesterol 95 mg/dL (5-100) 04/15/18 05:30 HDL Cholesterol 59 mg/dL (40-60) 04/15/18 05:30 TSH 3.29 uIU/ml (0.358-3.74) 04/14/18 18:11 Discharge Summary Reason For Visit: CHEST PAIN,BRADYCARDIA Current Active Problems Bradycardia (Acute) Chest tightness (Acute) Hospital Course: Atypical presentation only CAD risk is premature CAD multiple family members, non smoker, not on HRT, LDL at target (95) excellent ET, admitted with atypical retrosternal chest discomfort no change with exercise, non radiating, constant, normal serial CE and ECHO, asymptomatic bradycardia due to Cardiopulmonary condition, patiet has unlimited exercise tolerance, ECHO shows normal EF no Valvular or regional wall abnormality, normal EF (as per Cardiology consult, official result awaited), evaluated was Cardiology consult cleared to [place] home, possible etiology non cardiac , considering Family history of CAD, patient needs out patient stress test Condition: Stable - Instructions Referrals: Juancarlos Abdi MD [Staff Physician] - 1 Week Federica Groves [Primary Care Provider] - 1 Week Disposition: HOME - Home Medications Comprehensive Discharge Medication List: Ambulatory Orders Mag Hydrox/Al Hydrox/Simeth [Mylanta Oral Suspension -] 30 ml PO Q6H PRN cup Pantoprazole Sodium [Protonix -] 40 mg PO DAILY tablet.ec 04/15/18
== END 2018-04-15 13:37 | disposition home or self-care (01) ==
LOC: JER 17:15 → JERBED 19:46 → J4W 21:45
PROVIDERS: ADMIT Internal Medicine; ATTEND Internal Medicine
PROC: 3E033NZ Introduction of Analgesics, Hypnotics, Sedatives into Peripheral Vein, Percutaneous Approach (ICD-10-PCS; principal; 2018-04-14)
PROC: 3E033GC Introduction of Other Therapeutic Substance into Peripheral Vein, Percutaneous Approach (ICD-10-PCS; 2018-04-14)
PROC: 3E0337Z Introduction of Electrolytic and Water Balance Substance into Peripheral Vein, Percutaneous Approach (ICD-10-PCS; 2018-04-14)
DX: R07.89 Other chest pain (principal); R00.1 Bradycardia, unspecified; Z85.42 Personal history of malignant neoplasm of other parts of uterus; Z90.710 Acquired absence of both cervix and uterus
CPT/HCPCS: 36415; 71045-TC-FY; 80048; 80053; 80061; 81003; 81015; 82550; 82553; 83721; 83735; 83880; 84443; 84484; 85025; 85027; 85379; 85610; 86140; 93005; 93010; 93306-TC; 93970-TC; 99285-25; G0378; J7030

== ENCOUNTER 2020-02-07 21:13 | Emergency (ER) | payer BC ==
--- NOTE | 2020-02-07 21:27 | PDOC ---
History of Present Illness - General Chief Complaint: Altered Mental Status Stated Complaint: HEADACHE Time Seen by Provider: 02/07/20 21:26 - History of Present Illness Initial Comments: Sophie Villavicencio is a 60 y/o female with no reported PMH presenting today with altered mental status and expressive aphasia. Pt states that she started having a headache yesterday evening that continued into today. Per , patient started having confusion and word finding difficulty at 6pm today. No dizziness/vertigo/vision changes. No nausea/vomiting. No vision changes. No slurred speech. No facial asymmetry. No weakness. No numbness/tingling. No falls. No chest pain/shortness of breath/abdominal pain/back pain/leg swelling. Past History - Medical History Allergies/Adverse Reactions: Allergies Allergy/AdvReac Type Severity Reaction Status Date / Time ciprofloxacin [From Cipro] Allergy Severe Vomiting Verified 04/14/18 17:22 Home Medications: Ambulatory Orders Mag Hydrox/Al Hydrox/Simeth [Mylanta Oral Suspension -] 30 ml PO Q6H PRN cup 04/15/18 Pantoprazole Sodium [Protonix -] 40 mg PO DAILY tablet.ec 04/15/18 Cancer: Yes (uterine) COPD: No - Immunization History Immunization Up to Date: Yes - Psycho-Social/Smoking History Smoking History: Never smoked - Substance Abuse Hx (Audit-C & DAST Scrn) How often the patient has a drink containing alcohol: Never Score: In Men: 4 or > Positive; In Women: 3 or > Positive: 0 Screen Result (Pos requires Nsg. Audit-10AR): Negative In the last yr the pt used illegal drug/Rx for NonMed reason: No Score: Yes response is considered Positive: 0 Screen Result (Positive result requires Nsg. DAST-10): Negative Review of Systems - Review of Systems Comments:: GENERAL/CONSTITUTIONAL: No fever or chills. No weakness._ HEAD, EYES, EARS, NOSE AND THROAT: No change in vision. No change in hearing. No sore throat._ CARDIOVASCULAR: No chest pain or shortness of breath_ RESPIRATORY: Denies cough, hemoptysis_ GASTROINTESTINAL: No nausea, vomiting, diarrhea or constipation._ GENITOURINARY: No dysuria, frequency, or change in urination._ MUSCULOSKELETAL: No joint or muscle swelling or pain. No neck or back pain._ SKIN: No rash_ NEUROLOGIC: Reports headache and word finding difficulty. No vertigo, loss of consciousness, or change in strength/sensation._ ENDOCRINE: No increased thirst. No abnormal weight change_ HEMATOLOGIC/LYMPHATIC: No anemia, easy bleeding, or history of blood clots._ ALLERGIC/IMMUNOLOGIC: No hives or skin allergy._ *Physical Exam - Vital Signs Last Vital Signs Temp Pulse Resp BP Pulse Ox 97.4 F L 90 19 115/73 100 02/07/20 21:16 02/07/20 21:16 02/07/20 21:16 02/07/20 21:16 02/07/20 21:16 - Physical Exam GENERAL: Awake, alert, and oriented to person/place/time, in no acute distress_ HEAD: No signs of trauma, normocephalic, atraumatic _ EYES: PERRLA, EOMI, sclera anicteric, conjunctiva clear. No nystagmus on far lateral gaze bilaterally. ENT: Hearing grossly normal, nares patent, oropharynx clear without exudates. No uvular deviation. Moist mucosa_ NECK: Normal ROM, supple, no lymphadenopathy, JVD, or masses_ LUNGS: No distress, speaks in full sentences, clear to auscultation bilaterally _ HEART: Regular rate and rhythm, normal S1 and S2, no murmurs appreciated, peripheral pulses normal and equal bilaterally._ ABDOMEN: Soft, nontender, normoactive bowel sounds. No guarding, no rebound. No masses_ EXTREMITIES: Normal inspection, Normal range of motion, no edema. No clubbing or cyanosis_ NEUROLOGICAL: CN II-XII tested and intact. +expressive aphasia and word finding difficulty of select words. No slurred speech. No facial asymmetry. Sensation intact to sharp/dull differentiation in all extremities. Motor: Normal tone and bulk. No abnormal movements appreciated. No pronator drift. Strength tested and 5/5 in bilateral wrist flexion/extension, elbow flexion/extension, shoulder abduction, straight leg raise, knee flexion/extension, ankle dorsiflexion/plantarflexion. Patient ambulates with a steady gait. Coordination: Finger to nose and heel to pierce testing intact bilaterally. SKIN: Warm, Dry, normal turgor, no rashes or lesions noted_ ED Treatment Course - LABORATORY CBC & Chemistry Diagram: 02/07/20 20:10 02/07/20 20:10 - RADIOLOGY Radiology Studies Ordered: Category Date Time Status CHEST X-RAY PORTABLE* [RAD] Stat Radiology 02/07/20 21:27 Ordered Medical Decision Making - Medical Decision Making 60F no reported PMH presenting today with headache that started yesterday and confusion and word finding difficulty starting at 6pm today. -CT head/stroke -cbc, cmp -ekg, trop, cxr -coags -lipid profile -aspirin -zofran -reglan/benadryl -fluids 02/07/20 22:00 CT head negative for acute intracranial pathology or hemorrhagic stroke. D/w Dr. Luu who agrees not giving TPA given limited symptoms. Will obtain CTA neck and brain. 02/08/20 00:37 CTA neck: The cervical common carotid arteries, the bifurcations, the cervical internal carotid arteries and the bilateral cervical vertebral arteries are all patent without stenosis occlusion dissection or aneurysm. CTA brain: The anterior and posterior arterial circulations are patient.. No large vessel occlusion. On axial views, the right middle cerebral artery appears to have some atherosclerotic ir regularity but on other views it does not look like there is any plaque. Otherwise, no stenosis occlusion dissection or aneurysm of the anterior or posterior circulation. Labs reviewed. Laboratory Last Values WBC 6.2 K/mm3 (4.0-10.0) 02/07/20 20:10 RBC 3.98 M/mm3 (3.60-5.2) 02/07/20 20:10 Hgb 12.2 GM/dL (10.7-15.3) 02/07/20 20:10 Hct 36.7 % (32.4-45.2) 02/07/20 20:10 MCV 92.1 fl (80-96) 02/07/20 20:10 MCH 30.6 pg (25.7-33.7) 02/07/20 20:10 MCHC 33.2 g/dl (32.0-36.0) 02/07/20 20:10 RDW 12.9 % (11.6-15.6) 02/07/20 20:10 Plt Count 208 K/MM3 (134-434) 02/07/20 20:10 MPV 7.9 fl (7.5-11.1) 02/07/20 20:10 Absolute Neuts (auto) 3.8 K/mm3 (1.5-8.0) 02/07/20 20:10 Neutrophils % 61.2 % (42.8-82.8) D 02/07/20 20:10 Lymphocytes % 21.5 % (8-40) D 02/07/20 20:10 Monocytes % 12.1 % (3.8-10.2) H 02/07/20 20:10 Eosinophils % 4.5 % (0-4.5) D 02/07/20 20:10 Basophils % 0.7 % (0-2.0) 02/07/20 20:10 Nucleated RBC % 0 % (0-0) 02/07/20 20:10 PT with INR 11.80 SEC (9.7-13.0) 02/07/20 20:10 INR 1.00 (0.83-1.09) 02/07/20 20:10 PTT (Actin FS) 28.4 SECONDS (25.2-36.5) 02/07/20 20:10 Sodium 143 mmol/L (136-145) 02/07/20 20:10 Potassium 4.0 mmol/L (3.5-5.1) 02/07/20 20:10 Chloride 111 mmol/L (98-107) H 02/07/20 20:10 Carbon Dioxide 25 mmol/L (21-32) 02/07/20 20:10 Anion Gap 7 MMOL/L (8-16) L 02/07/20 20:10 BUN 11.0 mg/dL (7-18) 02/07/20 20:10 Creatinine 0.8 mg/dL (0.55-1.3) 02/07/20 20:10 Est GFR (CKD-EPI)AfAm 94.19 02/07/20 20:10 Est GFR (CKD-EPI)NonAf 81.27 02/07/20 20:10 Random Glucose 91 mg/dL (74-106) 02/07/20 20:10 Calcium 8.6 mg/dL (8.5-10.1) 02/07/20 20:10 Total Bilirubin 0.6 mg/dL (0.2-1) 02/07/20 20:10 AST 15 U/L (15-37) 02/07/20 20:10 ALT 18 U/L (13-61) 02/07/20 20:10 Alkaline Phosphatase 70 U/L (45-117) 02/07/20 20:10 Creatine Kinase 70 U/L (26-192) 02/07/20 20:10 Troponin I < 0.02 ng/ml (0.00-0.05) 02/07/20 20:10 Total Protein 6.6 g/dl (6.4-8.2) 02/07/20 20:10 Albumin 3.6 g/dl (3.4-5.0) 02/07/20 20:10 Triglycerides 72 mg/dL (0-150) 02/07/20 20:10 Cholesterol 202 mg/dL (50-200) H 02/07/20 20:10 Total LDL Cholesterol 108 mg/dL (5-100) H 02/07/20 20:10 HDL Cholesterol 72 mg/dL (40-60) H 02/07/20 20:10 Blood Type B POSITIVE 02/07/20 20:10 Antibody Screen Negative 02/07/20 20:10 02/08/20 00:58 Case d/w Dr. Staley, [facility] stroke fellow, who accepts the patient in transfer. 02/08/20 01:08 EKG shows 67 bpm, NSR, no axis deviation, KS 204, QTc 409, no ST elevation/depression. No significant interval change from prior EKG (04/2018) CXR negative for acute chest pathology. 02/08/20 01:08 D/w Dr. Cosby at [facility] ED who accepts the patient in ED to ED transfer. Discharge - Discharge Information Problems reviewed: Yes Clinical Impression/Diagnosis: Expressive aphasia Condition: Guarded Disposition: TRANSFER ACUTE CARE/OTHER HOSP - Admission No - Follow up/Referral Referrals: Federica Groves [Primary Care Provider] - - Patient Discharge Instructions - Post Discharge Activity NIH Stroke Scale - Last Known Well Date/Time & Onset Date Last Known Well: 02/07/20 Time Last Known Well: 18:00 - Initial Evaluation Level of consciousness: Alert Ask patient the month and their age: Answers both correctly Ask patient to open & close eyes; make fist and let go: Obeys both correctly Best gaze (horizontal eye movement): Normal Visual field testing: No visual field loss Facial paresis (Show teeth/raise eyebrows/close eyes tight): Normal symmetrical movement Motor Function: Left Arm: Normal Motor Function: Right Arm: Normal (extends arm 90 (or 45) degrees for 10 seconds without drift Motor Function: Left Leg: Normal (extends leg 30 degrees for 5 seconds without drift) Motor Function: Right Leg: Normal (extends leg 30 degrees for 5 seconds without drift) Limb Ataxia: No ataxia Sensory(Use pinprick test arms,legs,trunk,face/side to side): Normal Best language (Describe picture, name items, read sentences): Mild to moderate aphasia Dysarthria (read several words): Normal articulation Extinction and Inattention: No abnormality - Total Score NIH Stroke Scale Score: 1 tPA Exclusion checklist 3-4.5h - Time Elapsed Date last known well: 02/07/20 Time last known well: 18:00 Elaspsed time: 2 Day(s) and 3 Hour(s) and 18 Minutes - Thrombolytic Therapy Candidate Is patient eligible for thrombolytic therapy: No - Exclusion Criteria 3-4.5 hr SBP greater than 185 or DBP greater than 110mmHg despite tx: No Recent IC/spinal surgery,head trauma or stroke<3mos.: No Hx IC hemorrhage, IC neoplasm, AV malformation or aneurysm: No Active internal bleeding: No Blding diathesis(low plt ct, inc PTT,INR>1.7 or use of NOAC): No Symptoms suggest subarachnoid hemorrhage: No CT demonstrates multilobar infarct(>1/3 cerebral hemiphere): No Arterial puncture at noncompressible site in previous 7 days: No Blood glucose concentration less than 50mg/dL (2.7mmol/L): No - Relative Exclusion Criteria 3-4.5 hr Care team unable to determine eligibility: No IV/IA thrombolysis/thrombectomy @ another hosp prior arrival: No Life expectancy <1 yr or severe co-morbid illness: No : No Patient/family refused: No Stroke severity too mild (non-disabling): Yes Recent acute WI (w/in previous 3 months): No Seizure at onset with postictal residual neuro impairments: No Major surgery or serious trauma w/in previous 14 days: No Recent GI or hemorrhage (w/in previous 21 days): No - Add'l Relative Exclusion 3-4.5 hr Age > 80: No Hx of both diabetes AND prior ischemic stroke: No Taking an oral anticoagulant regardless of INR: No Severe Stroke (NIHSS >25): No - Ineligibility reason(s) Reasons No tPA given: See reason(s) noted above
[2020-02-07 21:29] VITALS: BMI 28.8
[2020-02-07] MEDS ORDERED: METOCLOPRAMIDE HCL INJECTION 10 MG/2 ML VIAL IVPB ONE (21:59)
[2020-02-07] MEDS ORDERED: ACETAMINOPHEN 1000 MG/100 ML VIAL (NON FORMULARY) IVPB ONE (22:17)
[2020-02-07 22:19] LABS: BASO % 0.7 % (0-2.0); EOS % 4.5 % (0-4.5); HEMATOCRIT 36.7 % (32.4-45.2); HEMOGLOBIN 12.2 GM/dL (10.7-15.3); LYMPH % 21.5 % (8-40); MCH 30.6 pg (25.7-33.7); MCHC 33.2 g/dl (32.0-36.0); MEAN CELL VOLUME 92.1 fl (80-96); MEAN PLT VOLUME 7.9 fl (7.5-11.1); MONO % 12.1 % (3.8-10.2); NEUT % 61.2 % (42.8-82.8); PLATELET COUNT 208 K/MM3 (134-434); RBC 3.98 M/mm3 (3.60-5.2); RDW 12.9 % (11.6-15.6); WHITE BLOOD COUNT 6.2 K/mm3 (4.0-10.0)
--- NOTE | 2020-02-07 22:27 | PDOC ---
Documentation entered by Sandi Thompson SCRIBE, acting as scribe for Phylicia Zee DO. Phylicia Zee DO: This documentation has been prepared by the Jay mathew Sydney, SCRIBE, under my direction and personally reviewed by me in its entirety. I confirm that the documentation accurately reflects all work, treatment, procedures, and medical decision making performed by me. Attending Attestation - Resident Resident Name: Freddy Mckeon - ED Attending Attestation I have performed the following: I have examined & evaluated the patient, The case was reviewed & discussed with the resident, I agree w/resident's findings & plan, Exceptions are as noted - HPI HPI: 02/07/20 22:16 Patient is a 60 year old female with no significant past medical history who presents to the ED with confusion, difficulty finding words, and headache. As per patient, she developed a headache yesterday. Patient's noticed around 6 this evening that the patients speech was slurred where she could not find her words, prompting her arrival to the ED. Allergies: ciprofloxacin PCP: Dr. Groves - Physicial Exam PE: 02/07/20 22:23 gen; aaox3, nad heent: PERRL, EOMI, MMM neck: supple heart: +s1s2 reg lungs: cta b/l abd: soft, nt/nd +bs ext: no c/c/e neuro: cn ii-xii grossly intact, muscle strength 5/5 UE and LE, sensation intact, +expressive aphasia - Medical Decision Making 02/07/20 21:24 a/p: 60yo female with reece x 2 days and onset of expressive aphasia and confusion at 6pm -pt seen upon arrival -NIHSS - 1 -pt sent to CT imaging -no meningeal signs -will discuss with neuro -code russo activated -will monitor and reassess 02/07/20 22:[address] Palm pt still with expressive aphasia, discussed TPA with the family and neurology, borderline at the window will hold off given low NIHSS family agrees case discussed with Dr uLu, no TPA, will place consult will send pt for cta head/neck for stroke 02/07/20 23:26 cxr clear 02/08/20 00:18 CTA pending reece improved still with expressive aphasia 02/08/20 00:39 cta head neg case discussed again with Dr. Luu, given persistent symptoms will transfer to Neuro at [facility], family and pt agree to transfer call placed to [facility] transfer center 02/08/20 01:04 call placed to the transfer center, accepted by the stroke fellow in transfer Heart Score/ECG Review - ECG Intrepretation Comment:: 02/07/20 23:22 sinus at 67, 1st degree av block, nl interval, q waves septally which are age indeterminate, no acute st/t wave findings Discharge - Discharge Information Problems reviewed: Yes Clinical Impression/Diagnosis: Expressive aphasia Disposition: TRANSFER ACUTE CARE/OTHER HOSP - Admission No - Follow up/Referral Referrals: Federica Groves [Primary Care Provider] - - Patient Discharge Instructions - Post Discharge Activity
[2020-02-07 22:28] LABS: PROTHROMBIN TIME (PATIENT) 11.8 SEC (9.7-13.0)
[2020-02-07 22:31] LABS: ACTIVATED PTT 28.4 SECONDS (25.2-36.5)
[2020-02-07 22:41] LABS: CHOLESTEROL 202 mg/dL (50-200); HDL CHOLESTEROL 72 mg/dL (40-60); LDL CHOLESTEROL (ONLY SJRH) 108 mg/dL (5-100); TRIGLYCERIDES 72 mg/dL (0-150)
[2020-02-07 22:45] LABS: ALBUMIN 3.6 g/dl (3.4-5.0); ALK PHOS 70 U/L (45-117); ANION GAP 7 MMOL/L (8-16); BILIRUBIN,TOTAL 0.6 mg/dL (0.2-1); CALCIUM 8.6 mg/dL (8.5-10.1); CHLORIDE 111 mmol/L (98-107); CO2 25 mmol/L (21-32); CREATININE 0.8 mg/dL (0.55-1.3); GLUCOSE,RANDOM 91 mg/dL (74-106); SGOT/AST 15 U/L (15-37); SGPT/ALT 18 U/L (13-61); SODIUM 143 mmol/L (136-145); TOT PROT 6.6 g/dl (6.4-8.2)
[2020-02-07] MEDS ORDERED: METOCLOPRAMIDE HCL INJECTION 10 MG/2 ML VIAL ONE (23:32)
[2020-02-07] MEDS ORDERED: ACETAMINOPHEN INJECTION 100 ML IVPB ONE (23:33)
[2020-02-08] MEDS ORDERED: ONDANSETRON 4 MG/2 ML VIAL IVPUSH ONE (00:08)
[2020-02-08] MEDS ORDERED: LACTATED RINGERS SOLUTION 1000 ML INFUS.BAG IV ONE (00:39)
[2020-02-08 00:58] VITALS: BP 128/74; PULSE 64; TEMP 98.6
[2020-02-08] MEDS ORDERED: ASPIRIN 81 MG CHEWABLE TABLETS PO SCH (10:00)
--- NOTE | 2020-02-08 11:36 | CON.NEURO ---
Consult - Alcohol/Substance Use Hx Alcohol Use: Yes (wine once in a while) - Smoking History Smoking history: Never smoked Home Medications - Allergies Allergies/Adverse Reactions: Allergies Allergy/AdvReac Type Severity Reaction Status Date / Time ciprofloxacin [From Cipro] Allergy Severe Vomiting Verified 04/14/18 17:22 - Home Medications Home Medications: Ambulatory Orders Mag Hydrox/Al Hydrox/Simeth [Mylanta Oral Suspension -] 30 ml PO Q6H PRN cup 04/15/18 Pantoprazole Sodium [Protonix -] 40 mg PO DAILY tablet.ec 04/15/18 Physical Exam-Neuro Vital Signs: Vital Signs Temperature 98.6 F 02/08/20 00:45 Pulse Rate 64 02/08/20 00:45 Respiratory Rate 21 H 02/08/20 00:45 Blood Pressure 128/74 02/08/20 00:45 O2 Sat by Pulse Oximetry (%) 97 02/08/20 00:45 Labs: CBC, BMP 02/07/20 20:10 02/07/20 20:10 INR, PTT INR 1.00 (0.83-1.09) 02/07/20 20:10 Assessment/Plan CC SPEECH difficulty 60 year old female came with word findings diffculty, initially her nih score was 4, she has normal ct head and normal cta of neck and brain. Initially she was not candidate for tpa . later she got worse and her speech has worsen. She was sent to [facility] for evlaluation and obervation. PMH as above PSH,FH,ROS REVIEWED IN CHART neuro examination NIH score 1 at admissoin , later wosen vss, neck is supple ct head unremarkbale Assessment/Plan Left mca acute stroke, nih score of 1, later worsen, she was transferred to [facility] Thanking you so much Angelique Luu MD
--- NOTE | 2020-02-08 14:55 | EKG ---
Test Reason : Blood Pressure : / mmHG Vent. Rate : 067 BPM Atrial Rate : 067 BPM P-R Int : 204 ms QRS Dur : 074 ms QT Int : 388 ms P-R-T Axes : 063 013 058 degrees QTc Int : 409 ms NORMAL SINUS RHYTHM POSSIBLE LEFT ATRIAL ENLARGEMENT BORDERLINE ECG WHEN COMPARED WITH ECG OF 15-APR-2018 08:45, VENT. RATE HAS INCREASED BY 23 BPM Confirmed by CATARINO MARIN MD ([id number]) on 02/08/2020 2:55:15 PM Referred By: Confirmed By:CATARINO MARIN MD
== END 2020-02-08 01:58 | disposition short-term general hospital (02) ==
LOC: JER 21:13
PROC: 3E033GC Introduction of Other Therapeutic Substance into Peripheral Vein, Percutaneous Approach (ICD-10-PCS; principal; 2020-02-07)
PROC: 3E033GC Introduction of Other Therapeutic Substance into Peripheral Vein, Percutaneous Approach (ICD-10-PCS; 2020-02-08)
DX: R47.01 Aphasia (principal)
CPT/HCPCS: 36415; 70450-TC; 70496-TC; 70498-TC; 71045-TC-FY; 80053; 80061; 82550; 83721; 84484; 85025; 85610; 85730; 86850; 86900; 86901; 93005; 93010; 99285-25; J0131; Q9967